=== PATIENT | male | born 1990 | race Caucasian/White ===

== ENCOUNTER 2020-04-05 14:12 | Emergency (ER) | payer OTHER, SELFPAY ==
--- NOTE | 2020-04-05 14:44 | ED.WOUNDLAC ---
HPI - Wound/Laceration General Chief Complaint: Wound/Laceration Stated Complaint: left hand finger lac Source: patient Mode of arrival: ambulatory Limitations: no limitations History of Present Illness HPI narrative: Patient is a 30-year-old male who presents with a laceration to left index finger from a kitchen knife. Patient reports he was chopping onions when he sliced finger. He reports tetanus shot up-to-date. Denies other injuries. Reports putting on medicine to stop the bleeding prior to arrival. Related Data Allergies Allergy/AdvReac Type Severity Reaction Status Date / Time No Known Allergies Allergy Unverified 12/15/11 13:12 Review of Systems Review of Systems: Narrative: CONSTITUTIONAL: Denies fever, chills, or sweats. EYES: Denies visual changes, redness, or discharge. ENT: Denies rhinorrhea, congestion, sore throat, or otalgia. CARDIOVASCULAR: Denies chest pain, palpitations, or edema. RESPIRATORY: Denies cough or dyspnea. GASTROINTESTINAL: Denies abdominal pain, nausea, vomiting, or diarrhea. GENITOURINARY: Denies dysuria or hematuria. SKIN: Laceration to left index finger MUSCULOSKELETAL: Denies back pain, joint pain, or myalgia. NEUROLOGIC: Denies headache, numbness, dizziness, or weakness. PSYCHIATRIC: Denies anxiety or depression. PMFSH Past Medical History Medical History No significant past medical history Surgical History Surgical History No significant past surgical history Family History Family History (Updated 04/05/20 @ 14:46 by ALFONZO Merchant) Other No significant family history Social History Social History (Updated 04/05/20 @ 14:46 by ALFONZO Merchant) Smoking status: Never smoker Alcohol intake: current Substance use: never Occupation/Education: occupation Exam Narrative: Exam Narrative: GENERAL: Well-appearing, well-nourished, and in no acute distress. HEAD: Normocephalic, atraumatic. EYES:No redness or drainage. ENT: Mucous membranes pink and moist. CHEST: No respiratory distress. EXTREMITIES: Normal range of motion. No edema. SKIN: 1.5 cm Laceration to distal tip of left index finger NEURO: No focal deficits. Alert and oriented x3. Gait steady. PSYCH: Normal affect. No signs of depression or anxiety. Procedures Laceration Laceration 1: Date: 04/05/20 Time: 15:55 Site: upper extremity Side (If applicable): left (Index finger) Size (cm): 1.5 Description: irregular Depth: simple, single layer Local Anesthetic: lidocaine 1% Amount of anesthesia used (mL): 2 ====== Skin Level ====== Size (cm): 5-0 Number of sutures: 6 Technique: simple, interrupted ====== Subcutaneous Layer ====== ====== Muscle Layer ====== ====== Tendon Layer ====== Dressing: Neosporin, Telfa and finger splint placed as dressing. MDM - Wound/Laceration MDM Narrative Medical decision making narrative: Patient has laceration to distal tip of left index finger. Bleeding controlled with pressure dressing initially. 6 sutures placed. Patient started on antibiotics. Patient is aware of the need to have sutures removed in 7 days. Patient is stable for discharge home with outpatient follow-up as needed Differential Diagnosis Differential diagnosis: Likely laceration, abscess, abrasion and avulsion of skin Critical Care Time Critical Care Time Critical Care Time: No Discharge Plan Discharge Clinical Impression: Laceration Patient Disposition: Home, Self-Care Condition: Stable Instructions: Laceration (ED) Additional Instructions: Keep wound clean and dry, Neosporin ointment daily. Have sutures removed in 7 days. Prescriptions: New cephalexin 500 mg capsule 500 mg PO QID 7 Days Qty: 28 RF: 0 Follow-up/Referrals: Howard,
[2020-04-05 14:50] VITALS: BP 146/97; PULSE 82; RESP 16; TEMP 36.2; O2SAT 98
== END 2020-04-05 16:16 | disposition home or self-care (01) ==
PROVIDERS: Emergency Provider Nurse Practitioner; PCP Internal Medicine
DX: S61.211A Laceration without foreign body of left index finger without damage to nail, initial encounter (principal); W26.0XXA Contact with knife, initial encounter; Y93.G9 Activity, other involving cooking and grilling
CPT/HCPCS: 12001; 99203; G0463